=== PATIENT | female | born 1990 | race Caucasian/White ===

== ENCOUNTER 2020-07-18 17:06 | Emergency (ER) | payer MEDICAID, SELFPAY ==
[2020-07-18 17:08] VITALS: BP 134/65; PULSE 85; RESP 18; TEMP 36.7; O2SAT 95; BMI 24.1
--- NOTE | 2020-07-18 17:34 | US_ITS ---
STUDY: RENAL ULTRASOUND - COMPLETE REASON FOR EXAM: Female, 30 years old. left flank pain, hx kidney stone, 37wks pregnany TECHNIQUE: Ultrasound evaluation of the kidneys was performed with real-time and static diop-scale imaging. COMPARISON: None. FINDINGS: RIGHT KIDNEY: Normal location of the right kidney, which is normal in size. The right kidney measures 11.24 x 5.3 x 5.2 cm. There is a normal cortex of the right kidney. The renal cortex measures 1.4 cm. There is no right renal mass or cyst. There are no right renal calculi. There is moderate to severe right hydronephrosis in association with extrarenal pelvis. DISTAL RIGHT URETER: There is non-visualization of the distal right ureter. There is no demonstrated right ureterovesical junction calculus. There is a visualized right ureteral jet. LEFT KIDNEY: Normal location of the left kidney, which is normal in size. The left kidney measures 9.6 x 7.4 x 4.4 cm. There is a mild thinning of the cortex of the left kidney. The renal cortex measures 0.8 cm. There is no left renal mass or cyst. There are no left renal calculi. There is mild renal pelvocaliectasis in association with extrarenal pelvis DISTAL LEFT URETER: There is non-visualization of the distal left ureter. There is no demonstrated left ureterovesical junction calculus. There is a visualized left ureteral jet. BLADDER: Not adequately evaluated due to patient voiding prior to study. US/Kidney and Bladder IMPRESSION: Bilateral hydronephrotic kidneys more severe on the right in association with third trimester . Cannot definitively exclude associated ureteral calculus repeat CT or MRI would be helpful for more definitive way significant clinically warranted Electronically Signed: Shorty Hunter MD at 18:37 EDT , Service support ,
--- NOTE | 2020-07-18 17:35 | ED.DCSUM_ITS ---
History of Present Illness Chief Complaint: Flank Pain Informant: Patient Onset: Yesterday Narrative: at 37 weeks and 5 days presents for left flank pain rating to left groin started a.m. yesterday. Followed by Dr. Carpio's group. 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 History of 3 kidney stones in the past last time in 2019. No interventions required. Using Tylenol last dose 10 AM. Currently nauseated. No fevers. States is the first time there is been pain in her groin. Increased urine urgency. No dysuria. Called OB again today was told to get evaluated. Pain is 6 out of 10. Denies pelvic pain, cramping or gushing of fluid. Prior similar symptoms: Yes Past Medical History - Allergies and Home Meds Allergies/Adverse Reactions: Allergies Sulfa (Sulfonamide Antibiotics) Allergy (Verified 07/18/20 17:13) Hives Primary Care Physician: Chanda Honeycutt MD [Primary Care Provider] - Past Medical History: - - Anxiety, kidney stones Smoking Status: Current every day smoker Review of Systems General: Denies: Chills, Fever, Sweats Eyes: Denies: Visual changes - bilaterally, Diplopia ENT: Denies: Rhinorrhea, Sore throat Cardiovascular: Denies: Chest pain, Palpitations Respiratory: Denies: Dyspnea, Cough, Dyspnea on exertion Gastrointestinal: Denies: Abdominal pain, Nausea, Vomiting, Diarrhea, Melena, Hematochezia Genitourinary: Reports: - - Urine urgency.. Denies: Dysuria, Hematuria, Frequency Musculoskeletal: Reports: Back pain, - - Left flank pain.. Denies: Extremity Pain Skin: Denies: Rash, Wounds Neurological: Denies: Headache, Weakness, Numbness Physical Exam Vital Signs/Narrative: Vital Signs Temp Pulse Resp BP Pulse Ox 07/18/20 17:08 98.0 F 85 18 134/65 H 95 Inital Vital Signs reviewed: Yes General: Well nourished, Well developed, No Acute Distress Head: Normocephalic, Atraumatic Eyes: Perrl, EOMI ENT: Moist mucous membranes, No rhinorrhea Neck: Supple, Nontender Cardiovascular: Regular rate, Regular rhythm, No murmurs Respiratory: No distress, CTA bilaterally, Chest nontender Abdomen: Soft, Nontender, Normal bowel sounds, - - Gravid abdomen, nontender. Back: Nontender, Normal Inspection, - - No ecchymosis or rash.. Negative for: CVA tenderness Extremities: Nontender, No edema Skin: Normal color, No rash Neurological: Alert, Oriented x3, Cranial nerves II-XII grossly intact, Normal Strength, Normal Sensation Psychological: Normal affect, Normal Mood Diagnostic/Tx/Re-eval Clinical Impression(s) from Imaging Studies Renal Ultrasound 07/18/20 17:34 IMPRESSION: Bilateral hydronephrotic kidneys more severe on the right in association with third trimester . Cannot definitively exclude associated ureteral calculus repeat CT or MRI would be helpful for more definitive way significant clinically warranted Electronically Signed: Shorty Hunter MD at 18:37 EDT , Service support , Abnormal Lab Results 07/18/20 07/18/20 07/18/20 17:28 17:28 17:38 WBC 10.8 RBC 4.00 L Hgb 11.7 L Hct 37.1 MCV 92.8 MCH 29.3 MCHC 31.5 L RDW Std Deviation 55.8 H RDW Coeff of Jose Roberto 16.4 H Plt Count 324 MPV 9.8 Immature Gran % (Auto) 0.900 Neut % (Auto) 71.8 H Lymph % (Auto) 18.6 L [place] % (Auto) 7.7 Eos % (Auto) 0.6 Baso % (Auto) 0.4 Absolute Neuts (auto) 7.7 Absolute Lymphs (auto) 2.00 Nucleated RBC % 0 Sodium 136 Potassium 3.4 L Chloride 104 Carbon Dioxide 25.0 Anion Gap 7 BUN 8 Creatinine 0.54 L Estim Creat Clear Calc 121.58 Est GFR (MDRD) Af Amer 170 Est GFR (MDRD) Non-Af 140 BUN/Creatinine Ratio 14.7 Glucose 73 L Calcium 8.9 Urine Color Yellow Urine Clarity Clear Urine pH 6.0 Ur Specific [place] 1.020 Urine Protein 15 H Urine Glucose (UA) Normal Urine Ketones Negative Urine Occult Blood 25 H Urine Nitrite Negative Urine Bilirubin Negative Urine Urobilinogen Normal Ur Leukocyte Esterase 25 H Urine RBC 5-10 SEEN Urine WBC 0-5 SEEN Ur Squamous Epith Cells 0-5 SEEN Urine Bacteria RARE Urine Mucus 1+ - Medical Decision Making Bedside ultrasound performed by myself heart tones 158 with positive movement. Evaluation both kidneys, there was no hydronephrosis with symmetric evaluation. Patient had labs drawn urine for further analysis. IV fluids with Zofran. She declines anything stronger at this time. Formal ultrasound will be obtained. 1901: Patient basic labs normal range, urine leukocytes rare bacteria with blood. Culture sent. Ultrasound results per radiology bilateral hydro, right greater than left. No visualized stone noted. Reevaluation the patient has been having lower abdominal cramping for 5 minutes. There is no gushing of fluid or bleeding. I spoke with OB on-call Dr. Markham discussed concerns and will cover her with Rocephin for potential pyelonephritis unclear on stone on ultrasound however she reports this is normal for . With her cramping she will be sent to OB triage for monitoring and disposition was made from there. ED Disposition - Plan for ED Patient: Disposition: Acute Care Hospital - Other Diagnosis: Left flank pain, UTI (urinary tract infection), Third trimester Referrals: Chanda Honeycutt MD [Primary Care Provider] -
[2020-07-18] MEDS: Ondansetron 4 MG/2 ML Vial IV (17:43)
[2020-07-18] MEDS: 0.9% Normal Saline 1,000 ML 250 ML IV (17:44)
[2020-07-18 17:51] LABS: Absolute Neutrophil Count 7.7 X10^3/uL (2.0-7.7); Basophil# 0.04 X10^3/uL; Basophil% 0.4 % (0-1); Eosinophil# 0.06 X10^3/uL; Eosinophils% 0.6 % (0-5); Hematocrit 37.1 % (37-47); Hemoglobin 11.7 g/dL (12.0-15.0); Lymphocyte % 18.6 % (19-41); Mean Corp Hgb Conc 31.5 g/dL (32-36); Mean Corpuscular Hgb 29.3 pg (27.0-32.0); Mean Corpuscular Volume 92.8 fL (81-99); Mean Platelet Vol. 9.8 fl (6.2-12.0); Monocyte# 0.83 X10^3/uL; Monocyte% 7.7 % (0-10); NRBC Flagged by Analyzer 0 % (0-5); Neutrophil # 7.73 X10^3/uL (2.7-7.7); Neutrophil % 71.8 % (47-70); Platelet Count 324 K/mm3 (150-450); RBC Distribution Width CV 16.4 % (11.6-14.6); RBC Distribution Width SD 55.8 fl (35.1-43.9); White Blood Count 10.8 K/mm3 (4.4-11.0)
[2020-07-18 17:52] LABS: Color, Urine Yellow (Yellow); Glucose, Dipstick Normal (Normal); Ketone-Dipstick Negative (Negative); Leukocyte Esterase-Dipstick 25 /ul (Negative); Nitrite-Dipstick Negative (Negative); Occult Blood-Urine 25 /ul (Negative); Protein-Dipstick 15 mg/dl (Negative); Urine Bilirubin Dipstick Negative (Negative); Urine Clarity Clear (Clear); Urine Urobilinogen Normal (Normal)
[2020-07-18 17:54] LABS: Anion Gap 7 (5-15); BUN 8 mg/dL (7-18); BUN/Creat Ratio 14.7 RATIO (10-20); Calcium,Total 8.9 mg/dL (8.5-10.1); Chloride 104 mmol/L (98-107); Creatinine, Serum 0.54 mg/dL (0.55-1.02); EST Glomerular Filtration Rate 140 mL/min (>60); Est Glom Filt Rate - Afr Amer 170 mL/min (>60); Estimated Creatinine Clearance 121.58 ml/min; Glucose 73 mg/dL (74-106); Potassium 3.4 mmol/L (3.5-5.1); Sodium Level 136 mmol/L (136-145)
[2020-07-18 17:57] LABS: Bacteria RARE /hpf (None Seen); Mucous, Urine 1+ /hpf (<or=2+); Red Blood Cells-Urine 5-10 SEEN /hpf (0-5); Squamous Epithelial Cells - UA 0-5 SEEN /hpf (5-10); White Blood Cells 0-5 SEEN /hpf (0-5)
[2020-07-18 19:06] VITALS: BP 113/74; PULSE 85; RESP 14; O2SAT 98
[2020-07-18] MEDS: Ceftriaxone 1 GM/50 ML BAG IV (19:25)
[2020-07-18 19:37] VITALS: BP 113/74; PULSE 85; RESP 14; TEMP 36.7; O2SAT 98
== END 2020-07-18 19:51 | disposition short-term general hospital (02) ==
PROVIDERS: Emergency Provider Emergency Medicine; PCP Pediatrics
DX: O23.43 Unspecified infection of urinary tract in pregnancy, third trimester (principal); O99.343 Other mental disorders complicating pregnancy, third trimester; F41.9 Anxiety disorder, unspecified; O99.333 Smoking (tobacco) complicating pregnancy, third trimester; F17.200 Nicotine dependence, unspecified, uncomplicated; Z87.442 Personal history of urinary calculi; Z3A.37 37 weeks gestation of pregnancy
CPT/HCPCS: 76770; 80048; 81001; 85025; 87086; 87088; 96361; 96365; 96374; 99283; J7030; A4216; J2405

== ENCOUNTER 2020-07-18 19:49 | Outpatient (CLI) | payer MEDICAID, SELFPAY ==
[2020-07-18 17:08] VITALS: BMI 24.1
[2020-07-18 20:07] VITALS: BP 114/71; PULSE 81
[2020-07-18 20:19] VITALS: BMI 24.1
[2020-07-18] MEDS: Acetaminophen 500 MG Tablet 1000 MG PO (20:57)
--- NOTE | 2020-07-20 10:37 | OB.TRI.NOTE ---
History of Present Illness Date of Service: 07/18/20 Reason For Visit: abdominal pain Date of Service: 07/18/20 Final ANDREW: 08/03/20 Gestational age: 38 Weeks and 0 Days History of Present Illness: 30-year-old female who presents complaining of left-sided abdominal and flank pain. She was seen in the emergency room and then started complaining of some abdominal cramping. Vaginal bleeding or leaking fluid. She is had good movement. She denies fevers or chills. She denies dysuria. She has some urinary frequency. She has a history of kidney stones. Emergency room she had an ultrasound which showed some hydronephrosis, worse on the right than the left. A kidney stone cannot be ruled out completely. Given a dose of IV antibiotics in case of pyelonephritis and sent to labor and delivery for evaluation. Allergies Sulfa (Sulfonamide Antibiotics) Allergy (Verified 07/18/20 20:20) Hives Review of Systems Constitutional: Denies: Chills, Fever Eyes: Denies: Blurred vision Cardiovascular: Denies: Chest Pain Respiratory: Denies: Cough, Shortness of Breath Gastrointestinal: Reports: Nausea. Denies: Diarrhea, Dyspepsia, Vomiting Genitourinary: Reports: Frequency. Denies: Dysuria, Hematuria Skin: Denies: Rash Neurological: Denies: Blurred vision, Change in Speech, Slurred speech, Confusion Physical Exam Vitals: Vital Signs Pulse BP 81 114/71 07/18/20 20:07 07/18/20 20:07 General: Alert, Cooperative, No apparent distress Abdomen: Soft, Non-Distended, Tender - Left side, - - No CVA tenderness. Extremities:: No edema, Deep tendon reflexes - 2+ Neurological: Cranial nerves II-XII grossly intact Estimated gestational size: Appropriate for gestational size Presentation: Cephalic NST - FHR Rate Baby A Baseline: 130 Variability:: Moderate Accelerations:: 15 x 15 Decelerations:: None NST Reactive:: Yes FHR Category:: Category I Uterine Activity:: irreg ctxs
== END 2020-07-18 22:05 | disposition home or self-care (01) ==
LOC: WPOUT 19:57 → WP 19:58
PROVIDERS: PCP Pediatrics; Visit Provider Obstetrics & Gynecology
DX: O99.891 Other specified diseases and conditions complicating pregnancy (principal); N13.30 Unspecified hydronephrosis; Z3A.38 38 weeks gestation of pregnancy; O23.43 Unspecified infection of urinary tract in pregnancy, third trimester; O99.343 Other mental disorders complicating pregnancy, third trimester; F41.9 Anxiety disorder, unspecified; O99.333 Smoking (tobacco) complicating pregnancy, third trimester; F17.200 Nicotine dependence, unspecified, uncomplicated; Z87.442 Personal history of urinary calculi
CPT/HCPCS: 59025; 59050; 76770; 80048; 81001; 85025; 87086; 96361; 96365; 96374; 99218; 99283; J7030; A4216; G0378; J2405

== ENCOUNTER 2020-07-31 18:50 | Inpatient (IN) | payer MEDICAID, SELFPAY ==
[2020-07-18 20:07] VITALS: TEMP 37.2; O2SAT 98
[2020-07-31 19:40] VITALS: BMI 25.0
[2020-07-31] MEDS: Lactated Ringers 1,000 ML 50 ML IV (19:55)
[2020-07-31 20:06] VITALS: BP 114/75; PULSE 118; O2SAT 99
[2020-07-31 20:07] VITALS: TEMP 36.7
[2020-07-31 20:26] LABS: Absolute Lymphocyte Count 2.06 X10^3/uL (0.83-4.51); Absolute Neutrophil Count 7.3 X10^3/uL (2.0-7.7); Basophil# 0.04 X10^3/uL; Basophil% 0.4 % (0-1); Eosinophils% 0.9 % (0-5); Hematocrit 36.9 % (37-47); Lymphocyte # 2.06 X10^3/ul (0.83-4.51); Lymphocyte % 18.9 % (19-41); Mean Corp Hgb Conc 32.5 g/dL (32-36); Mean Corpuscular Hgb 29.8 pg (27.0-32.0); Mean Corpuscular Volume 91.6 fL (81-99); Mean Platelet Vol. 9.8 fl (6.2-12.0); Monocyte# 1.31 X10^3/uL; NRBC Flagged by Analyzer 0 % (0-5); Neutrophil # 7.25 X10^3/uL (2.7-7.7); Neutrophil % 66.5 % (47-70); Platelet Count 338 K/mm3 (150-450); RBC Distribution Width CV 16.1 % (11.6-14.6); RBC Distribution Width SD 54.9 fl (35.1-43.9); Red Blood Count 4.03 M/mm3 (4.2-5.4); White Blood Count 10.9 K/mm3 (4.4-11.0)
[2020-07-31 20:57] VITALS: PULSE 143; O2SAT 84
[2020-07-31] MEDS: 0.9% Normal Saline Single 100 ML IV.SOLN. INTRA-UTER (21:14)
[2020-07-31 21:17] VITALS: PULSE 104; O2SAT 99
--- NOTE | 2020-07-31 21:44 | PCM.HP.OB ---
HPI - General General Date of Admission: 07/31/20 HPI Narrative KAI OWEN, is a 30 F who presents for induction. [facility] Medical History (Updated 07/31/20 @ 21:[address] Linda Rendon MD) Anxiety Depression Extrusion of tooth Headache Supervision of normal (~07/31/20) Home Medications PNV cmb#95-ferrous fumarate-FA 1 tablet PO DAILY 07/18/20 [History Last Taken 07/31/20 09:00] sertraline 25 mg PO DAILY 07/18/20 [History Last Taken 07/31/20 09:00] acetaminophen [Tylenol Extra Strength] 500 mg PO Q6H PRN 07/31/20 [History Last Taken 07/31/20 12:00] diphenhydramine HCl [Benadryl] 25 mg PO QHS 07/31/20 [History Last Taken 07/30/20 22:00] Allergy/AdvReac Type Severity Reaction Status Date / Time Sulfa (Sulfonamide Allergy Hives Verified 07/31/20 20:23 Antibiotics) Social History Smoking Status: Never smoker History Elective abortions Hx Para 0 Spontaneous abortions Hx # Term Pregnancies Ectopic pregnancies Hx # Pregnancies Multiple births # of living children NST FHR Rate Baby A Baseline: 145 Variability:: Moderate Accelerations:: 15 x 15 Decelerations:: Variable Uterine Activity:: Irregular Vital Signs Vital Signs Vital Signs: 07/31/20 20:06 07/31/20 20:07 07/31/20 20:57 Temperature 98.1 F Temperature Source Temporal Pulse Rate 118 H 143 H Blood Pressure 114/75 BP Systolic 114 BP Diastolic 75 Pulse Ox 99 84 07/31/20 21:17 Temperature Temperature Source Pulse Rate 104 H Blood Pressure BP Systolic BP Diastolic Pulse Ox 99 Physical Exam Const alert and oriented x3 GI soft to palpation, non-tender and non-distended Narrative: Cvx - 2/80/-2 Extremity no calf tenderness Assessment & Plan Assessment/Plan (1) Supervision of normal : Status: Acute Code(s): Z34.90 - Encounter for supervision of normal , unspecified, unspecified trimester Plan: Admit to L&D Induction - intracervical zepeda placed, will start pitocin once zepeda out COVID negative GBS negative Pain - epidural as desired EFW - less than 4500g, patient with adequate pelvis Routine care
[2020-07-31] MEDS: Acetaminophen 325 MG Tablet PO (21:58)
[2020-08-01] VITALS (47 sets, daily range): BP systolic 94–137; BP diastolic 52–92; PULSE 87–214; RESP 16; TEMP 36.3–37.4; O2SAT 84–100
[2020-08-01] MEDS: Oxytocin 30 units/NS 500 ml 30 UNITS/500 ML IV.SOLN IV (01:51)
[2020-08-01] MEDS: fentaNYL 100 MCG/2 ML Ampul IV (02:35)
[2020-08-01 02:58] LABS: ROM Internal Control Test YES-OK TO RESULT pt. (Internal QC); ROM Patient Test POSITIVE (Negative)
[2020-08-01] MEDS: Lactated Ringers 500 ML 999 ML IV ×3 (03:12→08:08)
[2020-08-01] MEDS: Ondansetron 4 MG/2 ML Vial IV (04:01)
[2020-08-01] MEDS: fentaNYL-bupivacaine (epidural) 100 ML BAG EPIDURAL (04:22)
--- NOTE | 2020-08-01 05:43 | PCM.PN.BLA ---
Progress Note S: Patient comfortable with epidural O: cvx - 6/80/-2 per RN fhts 135 with mod variability, accels tocos Q 3 min A&P: continue pitocin induction Some bleeding noted when RN placed IUPC. IUPC removed & no blood in catheter. No active bleeding. EFM remains reassuring. Will observe.
[2020-08-01] MEDS: Acetaminophen 325 MG Tablet PO (05:49)
[2020-08-01] MEDS: Lactated Ringers 1,000 ML 200 ML IV (07:20)
--- NOTE | 2020-08-01 08:32 | PN.OBGYN_ITS ---
Subjective Subjective: Patient seen at bedside. Feeling tired. Baby in SCN. She is trying to pump but baby has not attempted to eat yet. Ambulating and voiding without difficulty. Anticipate discharge tomorrow. Objective Data Objective Data Vital Signs: Vital Signs Temp Pulse BP Pulse Ox 99.4 F H 98 124/66 H 100 08/01/20 08:16 08/01/20 08:17 08/01/20 08:17 08/01/20 08:16 Weight: 141 lb Body Mass Index (BMI) 25.0 Intake & Output: Intake and Output for Last 24 Hours 07/30/20 07/31/20 08/01/20 23:59 23:59 23:59 Intake Total 1996.51 / Output Total 880 / 880 Balance 1117.51 / 1117.51 Lab / Micro Data Result Diagrams: 07/31/20 19:55 Labs: Laboratory Results - last 24 hr 07/31/20 07/31/20 08/01/20 19:55 19:55 02:43 WBC 10.9 RBC 4.03 L Hgb 12.0 Hct 36.9 L MCV 91.6 MCH 29.8 MCHC 32.5 RDW Std Deviation 54.9 H RDW Coeff of Jose Roberto 16.1 H Plt Count 338 MPV 9.8 Immature Gran % (Auto) 1.300 H Neut % (Auto) 66.5 Lymph % (Auto) 18.9 L [place] % (Auto) 12.0 H Eos % (Auto) 0.9 Baso % (Auto) 0.4 Absolute Neuts (auto) 7.3 Absolute Lymphs (auto) 2.06 Nucleated RBC % 0 Vag Amniotic Fld Detect POSITIVE H Blood Type O POSITIVE Antibody Screen NEGATIVE Physical Exam Const alert and oriented x3 General Appearance: comfortable Orientation / Consciousness: awake Exam Limitations: no limitations HEENT normocephalic Head and Scalp: normal to inspection Face and Sinus: normal facial exam Eyes General Eye: normal appearance of both eyes Neck full ROM Chest Chest: symmetrical chest wall rise Resp normal respiratory effort Cardio regular rate Skin no rashes or lesions noted General Skin Exam: no breakdown Assessment & Plan Assessment/Plan (1) (spontaneous vaginal delivery): Status: Acute Code(s): O80 - Encounter for full-term uncomplicated delivery Plan: Routine care Pain control Support with pumping Anticipate discharge home tomorrow
[2020-08-01] MEDS: Oxytocin 30 units/NS 500 ml 30 UNITS/500 ML IV.SOLN 334 UNITS IV (09:38)
--- NOTE | 2020-08-01 11:53 | PCM.OPRPT ---
Problems Associated Problem List Diagnoses (1) (spontaneous vaginal delivery): (2) Second degree perineal laceration: (3) Laceration, obstetrical, first degree: Report of Operation Date of Procedure: 08/01/20 Pre-Operative Diagnosis: Term gestation, induction of labor Post-Operative Diagnosis: , 2nd degree perineal laceration Surgery/Procedure Performed:: Type of Anesthesia: Epidural Estimated Blood Loss (mL): 350 Description of Procedure: Patient complete dilation and feeling pressure in bottom. Provided bedside support while pushing. head delivered with minimal maternal effort followed quickly by both shoulders and remainder of infant body. Vigorous male placed on materanl abdomen and attended to by nursing staff. Three vessel cord clamped and cut after 3 minute delay by FOB. Cord blood obtained and sent to lab. Pitocin IV started for active management of the third stage. Placenta delivered spontaneously and intact. After inspection, it was noted a first degree right labial laceration and a second degree perineal laceration. Lacerations repaired in usual fashion with Vicryl 3-0. Hemostasis obtained. EBL 350 cc. Fundus firm 2 below U. APGARS 9/9 Patient and bonding at this time. Admit VTE Documentation VTE Present on Admission: No VTE Mechan Device Prophylaxis: None VTE Pharm Prophylaxis ordered?: No
[2020-08-01] MEDS: 0.9% Saline Lock 10 ML Syringe IV (12:44)
[2020-08-01] MEDS: Acetaminophen 500 MG Tablet 1000 MG PO ×2 (12:44→23:50)
--- NOTE | 2020-08-01 16:49 | CASEMGMT ---
Social Work Assessment Labor and Delivery Unit Patient [address]: [address] [place] [id number] Phone number: [phone] Date of Referral: 08.01.2020 Time of Referral: 1247 Referred By: Niesha Pimentel CNM Date of Intervention: 08.01.2020 Time of Intervention: 1300 Reason for Referral: maternal history of depression and anxiety History obtained from: medical records and mother of baby (MOB) Danielle Bellamy Household composition: ROMAINE has been living with her parents in [place]. At time of discharge from hospital plans to move in with the father of baby (FOB) Andre Mendez in [facility]. Patient's parent/guardian status: ROMAINE is a 30 year old single female, involved with 30 year old FOB for the last 10 months. MOB denies any form of abuse in relationship. Wagoner is the fist child for parents together, with FOB having a 5 year old son, Maynor. The is to be named Ramiro (born 08.01.2019). Medical History: ROMAINE is G1, P0 to 1 after delivering Ramiro. care started at 7 weeks and regular thereafter. Infant delivered weighing 6 pounds 5 ounces, Apgars 9 and 9 at 1 and 5 minutes of life. 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 Prior to that MOB worked as a [employer]. No issues with reading, writing, or learning comprehension. Financial Status: ROMAINE is not currently employed. 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 FOB works as an insurance collector. Supplies: Reports to have all needed supplies including bassinet, pack-n-play, and crib. Car seat, clothing, diapers, and wipes. Planning to breast feed and has a breast pump. Childcare/Caregiver(s): MOB and FOB. Transportation: No issues. Programs/Agencies Involved: WIC and [facility]. Verbally agrees to [facility] referral. Children Services/Legal Issues: None. Behavioral Health Issues: Mental Health History: ROMAINE has history of depression and anxiety. Chart indicates possible Bipolar disorder. History of anorexia. History of suicidal ideation with hospitalization about 5 years ago. Patient reports to see a psychiatrist on a regular basis in [place], [place] (Dr. Mcclelland). Patient denies any thoughts of suicide during this or currently. MOB has been prescribed Effexor in the past. On Zoloft and has been using Benadryl during this . Substance Use History: Denies any current or past issues with alcohol or drugs. Family History: Reports there is a history of bipolar disorder in the family though did not disclose who. Chart indicates a sister with history of depression and anxiety and the MOB's father with depression. Drug Screens: maternal drug screen negative on 12.19.2019. Family/Social Stressors: Unplanned , with the FOB not initially accepting the . MOB reports the FOB is supportive now and no concerns about this. 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 Patient is moving to [facility], in wiht the FOB for the first time, upon discharging from the hospital. MOB reports this is a worry, regarding this new transition. Support Systems: MOB reports FOB is supportive. Additional support from the MOB's mom, sister, and FOB's mother. MOB repots to have some friends she can talk to. Depression/Shaken Baby/Safe Sleeping: Educated to mood and anxiety disorders, including depression/anxiety/psychosis. MOB reports will continue taking mediation, likes to work out, and may consider going back to counseling. MOB is aware of shaken baby prevention and safe sleeping. ASSESSMENT: Met with the MOB in room, introducing to self and social work role. MOB tired, but willing to talk to this field underwriter. Baby slept in bedside crib for entirety of Social work visit. MOB glanced at the baby a few times, and did share that has been worried about whether will fail the baby as a mom and that cant stop watching the baby sleep. Discussion about anxiety, encouraged MOB to talk to support system about worries so that not carrying this alone, as well as seeking out help from psychiatrist if anxiety starts to become distressing. Encouraged self care, use of coping skills, getting outside, and also accepting help. Emotional support offered to the MOB. MOB is agreeable to having [facility] services for additional support. Encouraged MOB for making this decision. MOB reports to have needed supplies for baby, and to feel a magaña with the baby already. MOB reports to have support system as well. MOB accepted resource information/lists for [facility] and [facility]. mood and anxiety disorder packet also provided and reviewed. [facility] referral submitted via the [facility]'s secure web based referral page. PLAN: MOB and baby to home when ready. MOB has been given community resource information for home going. No other services requested or indicated though social work remains available should needs arise prior to discharge. -KASIA Álvarez, VENEREAL DISEASE INVESTIGATOR
[2020-08-01] MEDS: Ibuprofen 600 MG Tablet PO (19:40)
[2020-08-02] MEDS: Ibuprofen 600 MG Tablet PO ×2 (03:15→14:03)
[2020-08-02 03:17] VITALS: BP 115/68; PULSE 96; RESP 18; TEMP 36.4
--- NOTE | 2020-08-02 07:43 | PCM.DC ---
Discharge Instructions Outpatient Procedure Reason For Visit: INDUCTION Diet Discharge Diet: No restrictions Activity Discharge Activity: Return to Normal Activity Weight Bearing Status: Weight bearing as tolerated Follow Up Care Please Follow Up With: Niesha Pimentel CNM When: 2 weeks virtual visit/ 6 weeks in office Test Results: Test results from this visit will be discussed in further detail at your follow-up appointment, if applicable. Discharge Plan Admission Admit Date/Time: 07/31/20 18:50 Primary Reason for Your Visit: vaginal delivery Attending Provider: Niesha Pimentel Primary Care Provider: Chanda Honeycutt Discharge Orders/Prescriptions Prescriptions: Continued sertraline 25 MG tablet 25 mg PO DAILY RF: 0 PNV cmb#95-ferrous fumarate-FA 1 EACH tablet 1 tablet PO DAILY RF: 0 acetaminophen [Tylenol Extra Strength] 500 mg Tablet 500 mg PO Q6H PRN (Reason: Pain) RF: 0 Discontinued diphenhydramine HCl [Benadryl] 25 mg Capsule 25 mg PO QHS RF: 0 Referrals: Chanda Honeycutt MD [Primary Care Provider] - Disposition Patient Disposition: Home, self care
--- NOTE | 2020-08-02 08:11 | PCM.PN.OB ---
Subjective Subjective: Patient seen at bedside. Ambulating and voiding without difficulty. with support. Lochia decreasing. Desires discharge home today. Objective Data Objective Data Vital Signs: Vital Signs Temp Pulse Resp BP Pulse Ox 97.5 F L 96 18 115/68 100 08/02/20 03:17 08/02/20 03:17 08/02/20 03:17 08/02/20 03:17 08/01/20 11:55 Oxygen Delivery Method Room Air Weight: 141 lb Body Mass Index (BMI) 25.0 Intake & Output: Intake and Output for Last 24 Hours 07/31/20 08/01/20 08/02/20 23:59 23:59 23:59 Intake Total 3485.61 / 3485.61 Output Total 2280 / 2280 Balance 1205.61 / 1205.61 Lab / Micro Data Result Diagrams: 07/31/20 19:55 Physical Exam Const alert and no apparent distress General Appearance: cooperative and comfortable Exam Limitations: no limitations HEENT normocephalic Eyes General Eye: normal appearance of both eyes Neck full ROM General: normal visual inspection Chest Chest: symmetrical chest wall rise Resp normal respiratory effort and normal air movement Effort and Inspection: symmetric chest movement Auscultation: clear to auscultation bilaterally Cardio regular rate and regular rhythm GI normal to inspection, nondistended, normoactive bowel sounds Back/Spine normal ROM Extremity full ROM and no calf tenderness General Extremity: normal exam except as noted Skin no rashes or lesions noted Neuro CN's II-XII intact bilaterally Psych mental status grossly normal Assessment & Plan Assessment/Plan (1) (spontaneous vaginal delivery): Status: Acute Code(s): O80 - Encounter for full-term uncomplicated delivery Plan: Routine care Pain management Infant feeding support Anticipate discharge home
[2020-08-02 09:30] VITALS: BP 108/48; PULSE 108; RESP 16; TEMP 36.4
[2020-08-02] MEDS: Senna/Docusate Sodium 1 Tablet PO (09:37)
[2020-08-02] MEDS: Acetaminophen 500 MG Tablet 1000 MG PO (09:37)
[2020-08-02 14:00] VITALS: BP 118/78; PULSE 104; RESP 16; TEMP 36.3
== END 2020-08-02 15:05 | disposition home or self-care (01) | DRG 560 ==
PROVIDERS: Obstetrics & Gynecology; Admitting Provider Advanced Practice Midwife; PCP Pediatrics; Referring Provider Advanced Practice Midwife; Visit Provider Advanced Practice Midwife
DX: O99.344 Other mental disorders complicating childbirth (principal); Z3A.40 40 weeks gestation of pregnancy; Z37.0 Single live birth; F41.9 Anxiety disorder, unspecified; F32.9 Major depressive disorder, single episode, unspecified; Z79.899 Other long term (current) drug therapy; O70.1 Second degree perineal laceration during delivery
CPT/HCPCS: 59025; 59050; 84112; 85025; 86850; 86900; 86901; 99218; J7120; A4216; G0378; J2405